=== PATIENT | female | born 1970 | race Hispanic/Latino ===

== ENCOUNTER → 2017-08-11 | Day surgery (SDC) | payer OTHER ==
[~2017-08-11] VITALS: Ht 157.5 cm; Wt 67.1 kg
[~2017-08-11] MED LIST: KETOROLAC TROME10 M1 PO; LEVSIN0.125 M1 PO; ZANTAC300 MG PO; ZEBUTAL 50-3251 EACH PO; ZOFRAN4 M1 PO; ZOFRAN4 M2 PO
--- NOTE | 2017-08-11 16:32 | Operative Report ---
Operative/Inv Procedure Report Surgery Date: 08/11/17 Name of Procedure: Cryoablation D&C under ultrasound guidance Pre-Operative Diagnosis: Metromenorrhagia Post-Operative Diagnosis: Same Estimated Blood Loss: less than 50ml Surgeon/Parts Room Assistant: Tom GARCIA,Jaja Crowe Anesthesia: moderate sedation Operative/Procedure Note Note: 0 patient was taken the operating room placed supine position after adequate anesthesia patient placed in dorsolithotomy position the vagina from dorsal fashion bladder was catheterized examination under anesthesia performed at this point the patient was prepped and draped in sterile fashion bladder was catheterized using Arnold at this point the boland speculum was placed into the vagina the CO2 tenaculum was placed on the Intralipid cervix gentle downward traction cervix was dilated 29 Hegar to allow for the insertion of sharp curet sharp curettage the endometrial lining performed sharp curettage and cervical lining performed 2 specimens were sent to pathology patient tolerated that well on at this point I the cryoprobe was placed into the uterus under ultrasound guidance after bladder been catheterized using 250 mL normal saline 8 minutes on each side cryoablation was performed the cryoprobe was heated and removed on since removed from the vagina the patient was returned spine position she was awakened from anesthesia and transferred recovery room awake and alert Findings: Normal size uterus normal cervix no adnexal masses
== END ==
LOC: STS 08-05 16:26 → EDSTATUS 08-05 17:30 → STS 08-05 17:30
DX: N92.1 Excessive and frequent menstruation with irregular cycle (principal)
CPT/HCPCS: 36415; 81001; 81025; 93005; 93010; J2250; J2405; J3490